=== PATIENT | male | born 1980 | race African-American/Black ===

== ENCOUNTER 2017-02-24 22:08 | Emergency (ER) | payer OTHER, SELFPAY ==
[~2017-02-24 22:08] MED LIST: ISOVUE-370 76%-LOCM 1 ML ONE
[2017-02-24] MEDS ORDERED: Morphine 10 MG/ML VIAL ONE (22:56)
[2017-02-24] MEDS ORDERED: Ondansetron HCl/PF 4 MG/2 ML Vial ONE (22:56)
[2017-02-24 23:02] LABS: #Eosinphils 0.2 thou/uL (0.0-0.7); #Lymphocytes 1.7 thou/uL (1.20-3.40); #Monocytes 0.7 thou/uL (0.11-0.59); #Neutrophils 7.2 thou/uL (1.40-6.50); %Basophils 0.2 % (0.0-1.0); %Eosinophils 1.8 % (0.0-10.0); %Lymphocytes 17.1 % (21.0-51.0); %Monocytes 7.4 % (0.0-10.0); Mean Platelet Volume 7.3 fL (7.4-10.4); Red Blood Cell (RBC) Count 5.07 mill/uL (4.70-6.10); White Blood Cell (WBC) Count 9.8 thou/uL (4.8-10.8)
--- NOTE | 2017-02-24 23:13 | RAD ---
CHEST ONE VIEW: History: Chest pain. FINDINGS: Cardiac silhouette is magnified by projection. Pulmonary vasculature is unremarkable. Mediastinum is midline. There is no confluent airspace consolidation or evidence of pneumothorax. IMPRESSION: No active cardiopulmonary abnormalities are demonstrated. POS: [facility]
[2017-02-24 23:15] LABS: Lactic Acid - Sepsis 3.7 mmol/L (0.5-2.2)
[2017-02-24 23:21] LABS: ALT (SGPT) 25 U/L (8-55); AST (SGOT) 16 U/L (5-34); Alkaline Phosphatase 63 U/L (40-150); Anion Gap 16 mmol/L (10-20); BUN (Urea Nitrogen) 15 mg/dL (8.9-20.6); Bilirubin, Total 0.8 mg/dL (0.2-1.2); CK (CPK) 106 U/L (30-200); Calc. Creatinine Clearance 0 mL/min (70-130); Calcium 9.8 mg/dL (7.8-10.44); Carbon Dioxide 24 mmol/L (22-29); Chloride 97 mmol/L (98-107); Estimated GFR-MDRD Greater than 90; Globulin 3.3 g/dL (2.4-3.5); Lipase 5 U/L (8-78); Protein, Total 7.7 g/dL (6.0-8.3)
[2017-02-24 23:23] LABS: Troponin I Less than 0.010 ng/mL (< 0.028)
--- NOTE | 2017-02-24 23:42 | CT ---
CT ABDOMEN AND PELVIS WITH IV CONTRAST: History: Abdominal pain. Comparison: 02-15-17 FINDINGS: The lung bases are clear. Dystrophic calcifications are again demonstrated at the pancreatic head an d neck. No inflammation is visible. The spleen, kidneys, and adrenal glands are within normal limits . Urinary bladder is incompletely distended. A large amount of stool is apparent throughout the colo n. Lack of oral contrast limits evaluation of the bowel. IMPRESSION: 1. Chronic pancreatitis. No acute inflammation is apparent. 2. Constipation. POS: [facility]
[2017-02-25] MEDS ORDERED: Ketorolac Tromethamine 30 MG/ML VIAL ONE (01:42)
[2017-02-25 01:57] LABS: Lactic Acid - Sepsis 1.2 mmol/L (0.5-2.2)
[2017-02-25 03:12] LABS: Bilirubin Negative (Negative); Blood, Urine Negative (Negative); Glucose, Urine (Dipstick) Negative (Negative); Ketone, Urine Trace mg/dL (Negative); Nitrite Negative (Negative); Protein, Urine (Dipstick) Trace mg/dL (Neg-Trace); Urobilinogen 0.2 mg/dL (0.2-1.0)
[2017-02-25] MEDS ORDERED: Fleet Enema 133 ML BOT PR SCH (03:15)
--- NOTE | 2017-04-12 12:41 | EKG ---
Test Reason : CP Blood Pressure : / mmHG Vent. Rate : 109 BPM Atrial Rate : 109 BPM P-R Int : 158 ms QRS Dur : 096 ms QT Int : 338 ms P-R-T Axes : 072 093 034 degrees QTc Int : 455 ms Sinus tachycardia Possible Left atrial enlargement Rightward axis Nonspecific ST abnormality No STEMI Abnormal ECG Confirmed by JANAE LAL ([id number]), telegraph editor RUSLAN DEVI ([id number]) on 04/12/2017 12:40:49 PM Referred By: Confirmed By:JANAE LAL
== END 2017-02-25 04:33 ==
LOC: ERS 22:08
DX: K59.00 Constipation, unspecified (principal); R11.2 Nausea with vomiting, unspecified; E11.9 Type 2 diabetes mellitus without complications; F17.210 Nicotine dependence, cigarettes, uncomplicated
CPT/HCPCS: 36415; 71010; 74177; 80053; 81003; 82550; 82553; 83605; 83690; 84484; 85025; 93005; 96361; 96374; 96375; 99406; J1885; J2270; J2405

== ENCOUNTER 2017-03-05 23:36 | Emergency (ER) | payer SELFPAY ==
[2017-03-05] MEDS ORDERED: Ondansetron HCl/PF 4 MG/2 ML Vial ONE (23:56)
[2017-03-05] MEDS ORDERED: Ketorolac Tromethamine 30 MG/ML VIAL ONE (23:56)
[2017-03-06] MEDS ORDERED: Pantoprazole 40 MG VIAL ONE (00:01)
[2017-03-06 00:07] LABS: #Basophils 0.1 thou/uL (0.0-0.2); #Eosinphils 0.2 thou/uL (0.0-0.7); #Lymphocytes 2.5 thou/uL (1.20-3.40); #Monocytes 0.7 thou/uL (0.11-0.59); #Neutrophils 4.8 thou/uL (1.40-6.50); %Basophils 1.1 % (0.0-1.0); %Eosinophils 2.9 % (0.0-10.0); %Lymphocytes 29.5 % (21.0-51.0); %Monocytes 8.4 % (0.0-10.0); Hematocrit 45.2 % (42.0-52.0); Mean Platelet Volume 6.9 fL (7.4-10.4); Red Blood Cell (RBC) Count 4.93 mill/uL (4.70-6.10); White Blood Cell (WBC) Count 8.3 thou/uL (4.8-10.8)
[2017-03-06 00:24] LABS: ALT (SGPT) 15 U/L (8-55); AST (SGOT) 9 U/L (5-34); Alkaline Phosphatase 74 U/L (40-150); Anion Gap 15 mmol/L (10-20); BUN (Urea Nitrogen) 9 mg/dL (8.9-20.6); Bilirubin, Total 0.5 mg/dL (0.2-1.2); CK (CPK) 132 U/L (30-200); Calc. Creatinine Clearance 0 mL/min (70-130); Calcium 9.7 mg/dL (7.8-10.44); Carbon Dioxide 28 mmol/L (22-29); Chloride 97 mmol/L (98-107); Estimated GFR-MDRD Greater than 90; Globulin 3.3 g/dL (2.4-3.5); Lipase 10 U/L (8-78); Protein, Total 7.7 g/dL (6.0-8.3)
[2017-03-06 00:26] LABS: Troponin I Less than 0.010 ng/mL (< 0.028)
--- NOTE | 2017-03-06 08:18 | RAD ---
PORTABLE AP CHEST: Date: 03/06/17 HISTORY: Nausea, vomiting, and chest pain. Chest pain has been present for 1 month. Pain has been worse over t he left 2 days. Patient also complains of cough and shortness of breath. COMPARISON: 02/24/17. FINDINGS: Cardiac silhouette and pulmonary vasculature are within normal limits for the portable technique of t he study. The lungs remain clear. There has been no interval change from the prior study. IMPRESSION: No acute cardiopulmonary process. POS: [facility]
--- NOTE | 2017-04-07 14:18 | EKG ---
Test Reason : CHEST PAIN Blood Pressure : / mmHG Vent. Rate : 083 BPM Atrial Rate : 083 BPM P-R Int : 162 ms QRS Dur : 092 ms QT Int : 350 ms P-R-T Axes : 082 076 047 degrees QTc Int : 411 ms Normal sinus rhythm Normal ECG Confirmed by BOB NEWBERRY, NOEMI ([id number]), video effects editor RUSLAN DEVI ([id number]) on 04/07/2017 2:17:53 PM Referred By: ISABELA BYRNE Confirmed By:NOEMI ROJAS MD
== END 2017-03-06 01:02 ==
LOC: ERS 23:36 → EEVIPCON 23:36 → ERS 03-06 01:02
DX: E11.43 Type 2 diabetes mellitus with diabetic autonomic (poly)neuropathy (principal); K31.84 Gastroparesis; K21.9 Gastro-esophageal reflux disease without esophagitis; E11.9 Type 2 diabetes mellitus without complications; F17.210 Nicotine dependence, cigarettes, uncomplicated; Z79.4 Long term (current) use of insulin; Z79.899 Other long term (current) drug therapy
CPT/HCPCS: 71010; 80053; 82550; 82553; 83690; 84484; 85025; 93005; 96374; 96375; C9113; J1885; J2405

== ENCOUNTER 2017-06-21 15:42 | Emergency (ER) | payer SELFPAY ==
[2017-06-21 16:57] LABS: Base Excess-Venous 2.3 mmol/L (-30.0-30.0); Bicarbonate (HCO3v) 29.5 mmol/L (1.0-85.0); CO2 Tension (PvCO2) 55.2 mmHg (41.0-51.0); Calcium, Ionized 1.14 mmol/L (1.12-1.32); O2 Tension (PvO2) 37.9 mmHg (35.0-45.0); Potassium 3.9 mmol/L (3.4-4.7); T. Carbon Dioxide 31.2 mmol/L (1.0-85.0); pH (Venous) 7.336 (7.35-7.45); vO2 Saturation-calc 66.9 % (0.0-100.0)
[2017-06-21 16:58] LABS: #Basophils 0.1 thou/uL (0.0-0.2); #Eosinphils 0.2 thou/uL (0.0-0.7); #Lymphocytes 1.3 thou/uL (1.20-3.40); #Monocytes 0.5 thou/uL (0.11-0.59); #Neutrophils 3.3 thou/uL (1.40-6.50); %Basophils 1.6 % (0.0-1.0); %Eosinophils 3.1 % (0.0-10.0); %Lymphocytes 24.4 % (21.0-51.0); %Monocytes 9.8 % (0.0-10.0); %Neutrophils 61.2 % (42.0-75.0); Hemoglobin 13.6 g/dL (14.0-18.0); Mean Corpuscular HGB CONC 32.6 g/dL (32.0-36.0); Mean Corpuscular Volume 89.2 fl (80.0-94.0); Mean Platelet Volume 7.1 fL (7.4-10.4); Platelet Count 281 thou/uL (130-400); RBC Distribution Width 13.2 % (11.5-14.5); Red Blood Cell (RBC) Count 4.68 mill/uL (4.70-6.10); White Blood Cell (WBC) Count 5.4 thou/uL (4.8-10.8)
[2017-06-21 17:16] LABS: ALT (SGPT) 16 U/L (8-55); AST (SGOT) 12 U/L (5-34); Albumin 4.5 g/dL (3.5-5.0); Alkaline Phosphatase 94 U/L (40-150); Anion Gap 14 mmol/L (10-20); BUN (Urea Nitrogen) 16 mg/dL (8.9-20.6); Bilirubin, Total 0.8 mg/dL (0.2-1.2); Calc. Creatinine Clearance 0 mL/min (70-130); Calcium 9.8 mg/dL (7.8-10.44); Carbon Dioxide 27 mmol/L (22-29); Chloride 99 mmol/L (98-107); Estimated GFR-MDRD Greater than 90; Globulin 3.3 g/dL (2.4-3.5); Glucose 451 mg/dL (70-105); Phosphorus 3.7 mg/dL (2.3-4.7); Potassium 3.9 mmol/L (3.5-5.1); Protein, Total 7.8 g/dL (6.0-8.3); Sodium 136 mmol/L (136-145)
--- NOTE | 2017-06-21 17:49 | RAD ---
PORTABLE CHEST ONE VIEW 06/21/17 at 5:32 p.m. HISTORY: Chest pain, weakness. FINDINGS: Comparison made with exam of 03/06/17. The heart size is normal. The lungs are expanded without focal areas of consolidation, pneumothorax o r pleural effusions. IMPRESSION: No radiographic evidence of acute cardiopulmonary process. POS: [facility]
[2017-06-21 19:19] LABS: Bilirubin Negative (Negative); Blood, Urine Negative (Negative); Clarity CLEAR (Clear); Glucose, Urine (Dipstick) >=1000 mg/dL (Negative); Leukocyte Small (Negative); Nitrite Negative (Negative); Protein, Urine (Dipstick) Negative (Neg-Trace); Specific Gravity, Urine 1.038 (1.002-1.036)
[2017-06-21 19:22] LABS: Bacteria/HPF Rare-Few HPF (None Seen); Hyaline Casts/LPF 0-3 HYALINE CAST LPF (0-3 Hyaline); Squamous Epithelial 0-3 HPF (0-3)
[2017-06-21] MEDS ORDERED: traMADol HCl 50 MG TAB ONE (19:25)
== END 2017-06-21 20:20 | disposition home or self-care (01) ==
LOC: ERS 15:42
DX: E11.65 Type 2 diabetes mellitus with hyperglycemia (principal); Z91.14 Patient's other noncompliance with medication regimen; F17.210 Nicotine dependence, cigarettes, uncomplicated; Z79.4 Long term (current) use of insulin; Z79.899 Other long term (current) drug therapy
CPT/HCPCS: 36415; 36416; 71045; 80053; 81003; 81015; 82330; 82803; 84100; 85025; 87086; 93005; 96360; 96361

== ENCOUNTER 2018-06-15 00:44 | Emergency (ER) | payer SELFPAY ==
[2018-06-15 01:52] LABS: #Eosinphils 0.3 thou/uL (0.0-0.7); #Lymphocytes 1.3 thou/uL (1.20-3.40); #Neutrophils 12.5 thou/uL (1.40-6.50); %Basophils 0.3 % (0.0-1.0); %Eosinophils 2.3 % (0.0-10.0); %Lymphocytes 8.3 % (21.0-51.0); %Monocytes 6.9 % (0.0-10.0); %Neutrophils 82.3 % (42.0-75.0); Hemoglobin 15.2 g/dL (14.0-18.0); Mean Corpuscular HGB CONC 31.4 g/dL (32.0-36.0); Mean Corpuscular Hemoglobin 29.7 pg (27.0-31.0); Mean Corpuscular Volume 94.3 fL (78.0-98.0); Mean Platelet Volume 8.1 fL (7.4-10.4); Platelet Count 243 thou/uL (130-400); RBC Distribution Width 11.8 % (11.5-14.5); Red Blood Cell (RBC) Count 5.14 mill/uL (4.70-6.10); White Blood Cell (WBC) Count 15.2 thou/uL (4.8-10.8)
[2018-06-15 02:05] LABS: ALT (SGPT) 47 U/L (8-55); AST (SGOT) 30 U/L (5-34); Albumin 5.1 g/dL (3.5-5.0); Alkaline Phosphatase 214 U/L (40-150); Anion Gap 22 mmol/L (10-20); BUN (Urea Nitrogen) 6 mg/dL (8.9-20.6); Bilirubin, Total 0.8 mg/dL (0.2-1.2); Calc. Creatinine Clearance 0 mL/min (70-130); Calcium 10.4 mg/dL (7.8-10.44); Carbon Dioxide 22 mmol/L (22-29); Chloride 100 mmol/L (98-107); Estimated GFR-MDRD 65; Globulin 3.3 g/dL (2.4-3.5); Protein, Total 8.4 g/dL (6.0-8.3); Sodium 140 mmol/L (136-145)
[2018-06-15 02:08] LABS: Glucose 582 mg/dL (70-105)
[2018-06-15] MEDS ORDERED: Insulin Regular 300 UNITS/3 ML VIAL ONE (02:29)
[2018-06-15 02:32] LABS: Acetaminophen Less than 6.0 mcg/mL (10.0-30.0); Alcohol Less than 10 mg/dL (Less than 10); Salicylate Less than 8.0 mg/dL (15.0-30.0)
[2018-06-15 02:50] LABS: Lactic Acid 2.5 mmol/L (0.5-2.2)
--- NOTE | 2018-06-15 08:29 | RAD ---
TWO VIEWS OF THE CHEST: COMPARISON: 06/21/2017. HISTORY: Chest pain. FINDINGS: Two views of the chest show normal sized cardiomediastinal silhouette. There is no evidence of consol idation, mass, or pleural effusion. The bones are unremarkable. IMPRESSION: No evidence of acute cardiopulmonary disease. POS: [facility]
== END 2018-06-15 05:41 ==
LOC: ERS 00:44
DX: E11.65 Type 2 diabetes mellitus with hyperglycemia (principal); F17.210 Nicotine dependence, cigarettes, uncomplicated; Z79.84 Long term (current) use of oral hypoglycemic drugs; Z71.6 Tobacco abuse counseling
CPT/HCPCS: 36415; 36416; 71046; 80053; 80307; 82010; 83605; 84484; 85025; 93005; 96361; 96374; 99406; J1815

== ENCOUNTER 2018-09-14 10:13 | Emergency (ER) | payer OTHER, SELFPAY ==
[2018-09-14] MEDS ORDERED: ISOVUE-370 76%-LOCM 1 ML ONE (11:05)
[2018-09-14] MEDS ORDERED: Ondansetron PF 4 MG/2 ML Vial ONE (11:42)
--- NOTE | 2018-09-14 12:11 | CT ---
CT Abdomen Pelvis W Con: 09/14/2018 11:43 AM CLINICAL INFORMATION: Intermittent abdominal pain COMPARISON: 02/24/2017 TECHNIQUE: Multiple contiguous axial images were obtained and a CT of the abdomen and pelvis with IV contrast. C oronal reformats were performed. FINDINGS: Lower Chest: within normal limits. Abdomen: Liver: within normal limits. Bile Ducts: Normal caliber. Gallbladder: No calcified gallstones. Normal caliber wall. Pancreas: Calcifications in the pancreatic head may be from prior episodes of chronic pancreatitis. Spleen: within normal limits. Adrenals: within normal limits. Kidneys: within normal limits. Pelvis: Reproductive Organs: No pelvic masses. Ureters: within normal limits. Bladder: within normal limits. Peritoneum: No ascites or free air, no fluid collection. Bowel: Normal caliber. Normal appendix. Mesentery and Retroperitoneum: No enlarged mesenteric or retroperitoneal lymph nodes. Vessels: Normal. Abdominal Wall: within normal limits. Bones: Within normal limits IMPRESSION: 1. No evidence of acute intraabdominal\pelvic abnormality. 2. Calcifications in the pancreas may be from chronic pancreatitis.
[2018-09-14 12:26] LABS: #Basophils 0.1 thou/uL (0.0-0.2); #Eosinphils 0.4 thou/uL (0.0-0.7); #Lymphocytes 1.6 thou/uL (1.20-3.40); #Monocytes 0.6 thou/uL (0.11-0.59); #Neutrophils 5.2 thou/uL (1.40-6.50); %Basophils 0.9 % (0.0-1.0); %Eosinophils 4.6 % (0.0-10.0); %Lymphocytes 20.9 % (21.0-51.0); %Neutrophils 66.6 % (42.0-75.0); Hemoglobin 13.5 g/dL (14.0-18.0); Mean Corpuscular HGB CONC 32.2 g/dL (32.0-36.0); Mean Corpuscular Hemoglobin 28.5 pg (27.0-31.0); Mean Corpuscular Volume 88.3 fL (78.0-98.0); Mean Platelet Volume 6.9 fL (7.4-10.4); Platelet Count 326 thou/uL (130-400); RBC Distribution Width 11.5 % (11.5-14.5); Red Blood Cell (RBC) Count 4.73 mill/uL (4.70-6.10); White Blood Cell (WBC) Count 7.8 thou/uL (4.8-10.8)
[2018-09-14 12:47] LABS: Bilirubin Negative (Negative); Blood, Urine Negative (Negative); Clarity CLOUDY (Clear); Glucose, Urine (Dipstick) Negative (Negative); Leukocyte Negative (Negative); Nitrite Negative (Negative); Protein, Urine (Dipstick) Negative (Neg-Trace); pH, Urine 7.5 (5.0-9.0)
[2018-09-14 12:50] LABS: Specific Gravity, Urine 1.043 (1.002-1.036)
[2018-09-14 12:59] LABS: ALT (SGPT) 23 U/L (8-55); AST (SGOT) 16 U/L (5-34); Albumin 4.3 g/dL (3.5-5.0); Alkaline Phosphatase 80 U/L (40-150); Anion Gap 7 mmol/L (10-20); BUN (Urea Nitrogen) 10 mg/dL (8.9-20.6); Bilirubin, Total 0.8 mg/dL (0.2-1.2); Calc. Creatinine Clearance 0 mL/min (70-130); Calcium 10.1 mg/dL (7.8-10.44); Carbon Dioxide 32 mmol/L (22-29); Chloride 101 mmol/L (98-107); Estimated GFR-MDRD Greater than 90; Globulin 3.2 g/dL (2.4-3.5); Glucose 196 mg/dL (70-105); Lipase 5 U/L (8-78); Protein, Total 7.5 g/dL (6.0-8.3); Sodium 136 mmol/L (136-145)
[2018-09-14] MEDS ORDERED: Sucralfate 1 GM/10 ML UDCUP ONE (13:27)
== END 2018-09-14 13:42 | disposition home or self-care (01) ==
LOC: ERS 10:13
DX: R10.9 Unspecified abdominal pain (principal); E11.9 Type 2 diabetes mellitus without complications; I10 Essential (primary) hypertension; F17.210 Nicotine dependence, cigarettes, uncomplicated; Z79.84 Long term (current) use of oral hypoglycemic drugs; Z79.899 Other long term (current) drug therapy
CPT/HCPCS: 74177; 80053; 81003; 83690; 85025; 96361; 96374; J2405; Q9966

== ENCOUNTER 2018-12-30 21:08 | Emergency (ER) | payer SELFPAY ==
[2018-12-30] MEDS ORDERED: Clindamycin/D5W 900 mg/50 ml Premix Bag ONE (21:54)
[2018-12-30 21:55] LABS: #Basophils 0.1 thou/uL (0.0-0.2); #Eosinphils 0.4 thou/uL (0.0-0.7); #Lymphocytes 1.6 thou/uL (1.20-3.40); #Monocytes 0.7 thou/uL (0.11-0.59); #Neutrophils 8.2 thou/uL (1.40-6.50); %Basophils 0.7 % (0.0-1.0); %Eosinophils 3.9 % (0.0-10.0); %Lymphocytes 14.7 % (21.0-51.0); %Monocytes 6.1 % (0.0-10.0); %Neutrophils 74.6 % (42.0-75.0); Hemoglobin 14.3 g/dL (14.0-18.0); Mean Corpuscular HGB CONC 32.9 g/dL (32.0-36.0); Mean Corpuscular Hemoglobin 28.8 pg (27.0-31.0); Mean Corpuscular Volume 87.6 fL (78.0-98.0); Mean Platelet Volume 8.6 fL (7.4-10.4); Platelet Count 235 thou/uL (130-400); RBC Distribution Width 11.8 % (11.5-14.5); Red Blood Cell (RBC) Count 4.95 mill/uL (4.70-6.10)
[2018-12-30] MEDS ORDERED: Ketorolac Tromethamine 30 MG/ML VIAL ONE (22:07)
[2018-12-30 22:17] LABS: ALT (SGPT) 18 U/L (8-55); AST (SGOT) 13 U/L (5-34); Albumin 4.2 g/dL (3.5-5.0); Alkaline Phosphatase 134 U/L (40-150); Anion Gap 11 mmol/L (10-20); BUN (Urea Nitrogen) 11 mg/dL (8.9-20.6); Bilirubin, Total 0.7 mg/dL (0.2-1.2); Calc. Creatinine Clearance 0 mL/min (70-130); Calcium 9.6 mg/dL (7.8-10.44); Carbon Dioxide 28 mmol/L (22-29); Chloride 99 mmol/L (98-107); Estimated GFR-MDRD 85; Globulin 3.6 g/dL (2.4-3.5); Glucose 480 mg/dL (70-105); Potassium 4.3 mmol/L (3.5-5.1); Protein, Total 7.8 g/dL (6.0-8.3); Sodium 134 mmol/L (136-145)
[2018-12-30] MEDS ORDERED: Insulin Regular 300 UNITS/3 ML VIAL ONE (23:11)
== END 2018-12-31 00:09 | disposition home or self-care (01) ==
LOC: ERS 21:08
DX: E11.65 Type 2 diabetes mellitus with hyperglycemia (principal); K04.7 Periapical abscess without sinus; F17.210 Nicotine dependence, cigarettes, uncomplicated; Z79.4 Long term (current) use of insulin
CPT/HCPCS: 36416; 41800; 80053; 85025; 96361; 96365; 96375; J1815; J1885; J3490

== ENCOUNTER 2019-01-19 20:27 | Inpatient (IN) | payer SELFPAY ==
[2019-01-19] MEDS ORDERED: Ketorolac Tromethamine 30 MG/ML VIAL ONE (22:40)
[2019-01-19] MEDS ORDERED: Ondansetron PF 4 MG/2 ML Vial ONE (22:53)
[2019-01-19] MEDS ORDERED: Morphine 4 MG/ML VIAL ONE (22:53)
[2019-01-19 22:54] LABS: #Basophils 0.1 thou/uL (0.0-0.2); #Eosinphils 0.3 thou/uL (0.0-0.7); #Lymphocytes 1.3 thou/uL (1.20-3.40); #Monocytes 0.9 thou/uL (0.11-0.59); #Neutrophils 7.8 thou/uL (1.40-6.50); %Basophils 0.6 % (0.0-1.0); %Eosinophils 3.2 % (0.0-10.0); %Lymphocytes 12.1 % (21.0-51.0); %Monocytes 8.3 % (0.0-10.0); %Neutrophils 75.8 % (42.0-75.0); Mean Corpuscular HGB CONC 32.5 g/dL (32.0-36.0); Mean Corpuscular Hemoglobin 29.3 pg (27.0-31.0); Mean Corpuscular Volume 90.2 fL (78.0-98.0); Mean Platelet Volume 8.6 fL (7.4-10.4); Platelet Count 245 thou/uL (130-400); RBC Distribution Width 12.1 % (11.5-14.5); Red Blood Cell (RBC) Count 5.11 mill/uL (4.70-6.10); White Blood Cell (WBC) Count 10.3 thou/uL (4.8-10.8)
[2019-01-19] MEDS ORDERED: Clindamycin/D5W 900 MG in Premix Bag 1 BAG IVPB SCH (23:00)
[2019-01-19 23:16] LABS: ALT (SGPT) 20 U/L (8-55); AST (SGOT) 11 U/L (5-34); Albumin 4.1 g/dL (3.5-5.0); Alkaline Phosphatase 110 U/L (40-110); Anion Gap 14 mmol/L (10-20); BUN (Urea Nitrogen) 13 mg/dL (8.9-20.6); Bilirubin, Total 1.2 mg/dL (0.2-1.2); Calc. Creatinine Clearance 0 mL/min (70-130); Calcium 9.3 mg/dL (7.8-10.44); Carbon Dioxide 29 mmol/L (22-29); Chloride 96 mmol/L (98-107); Estimated GFR-MDRD Greater than 90; Glucose 546 mg/dL (70-105); Potassium 3.9 mmol/L (3.5-5.1); Protein, Total 7.1 g/dL (6.0-8.3); Sodium 135 mmol/L (136-145)
--- NOTE | 2019-01-19 23:42 | CT ---
CT Facial Bones W Con History: Deformity Comparison: None. Findings: Chronic large periodontal abscess extending from the root of the right mandibular second mo lar with remodeling of the floor of the maxillary sinus. This large abscess extends from the maxillary sinus floor with cortical breakthrough into the adjacent buccal soft tissues. Overall this abscess measures 4 cm in transverse by craniocaudal dimension of 5 cm and extends anteroposteriorly approximately 3 cm. The floor of the right maxillary sinus has been remodeled extends into the maxill mario sinus. There is extensive adjacent phlegmonous soft tissue. Complete filling of the right maxillary sinus with reactive fluid. There is medial bowing of the right maxillary sinus cortex which is severely tendon and abuts the right middle turbinate. There is a second chronic abscess at the left maxillary lateral incisor with abscess measuring up to 2 cm. Extensive adjacent phlegmonous soft tissue. Abscess extends to the buccal soft tissues. There is a smaller abscess of the right maxillary canine measuring up to 1 cm in size. This also extends in to the buccal soft tissues. [place] tonsils are without abscess. Nasopharyngeal tonsils are without abscess. Globes are intact. Extensive soft tissue swelling of the cheek on the right and left. Smaller 1.5 cm abscess of the right mandibular first molar with cortical breakthrough into the buccal soft tissues. Numerous cavities and missing teeth. No retropharyngeal collection. Impression: Extensive abscesses as described, greatest at the right maxillary second molar with remod eling of the floor the right maxillary sinus which is bowed superiorly into the midportion of the sinus.
[2019-01-20 00:37] LABS: Bacteria/HPF None Seen HPF (None Seen); Bilirubin Negative (Negative); Blood, Urine Negative (Negative); Clarity Clear (Clear); Glucose, Urine (Dipstick) Greater than 1000 mg/dL (Negative); Leukocyte Negative Leu/uL (Negative); Nitrite Negative (Negative); Protein, Urine (Dipstick) Negative (Neg-Trace); RBC/HPF None Seen HPF (0-3); Squamous Epithelial None Seen HPF (0-3); Urobilinogen Normal mg/dL (Less than 2); WBC/HPF None Seen HPF (0-3)
[2019-01-20 02:57] VITALS: BMI 19.3
[2019-01-20] MEDS ORDERED: Sodium Chloride 0.9% 1,000 ML IV SCH (03:15)
[2019-01-20] MEDS ORDERED: HYDROcodone/Acetaminophen 5/325 mg Tablet PO PRN (08:36)
[2019-01-20] MEDS ORDERED: Bisacodyl 10 MG SUPP PR PRN (08:36)
[2019-01-20] MEDS ORDERED: Zolpidem Tartrate 5 MG TAB PO PRN (08:36)
[2019-01-20] MEDS ORDERED: HumaLOG 300 UNITS/3 ML VIAL SC PRN (08:36)
[2019-01-20] MEDS ORDERED: Dextrose 5% in Water 1,000 ML IV PRN (08:36)
[2019-01-20] MEDS ORDERED: Ketorolac Tromethamine 30 MG/ML VIAL IVP PRN (08:36)
[2019-01-20] MEDS ORDERED: Dextrose 50% Abboject 50 ML SYRINGE SLOW IVP PRN (08:36)
[2019-01-20] MEDS ORDERED: Senokot S 8.6-50 MG TAB PO PRN (08:36)
[2019-01-20] MEDS ORDERED: Calcium Carbonate 500 MG ChewTAB PO PRN (08:36)
[2019-01-20] MEDS ORDERED: Loperamide HCl 2 MG CAP PO PRN (08:36)
[2019-01-20] MEDS ORDERED: Ondansetron PF 4 MG/2 ML Vial IVP PRN (08:36)
[2019-01-20] MEDS ORDERED: Acetaminophen 325 MG TAB PO PRN (08:36)
[2019-01-20] MEDS ORDERED: Ondansetron ODT 4 MG TAB PO PRN (08:36)
[2019-01-20] MEDS ORDERED: metFORMIN 500 MG TAB PO SCH (09:00)
[2019-01-20] MEDS: Famotidine 20 MG TAB PO SCH ×2 (09:38→21:53)
[2019-01-20] MEDS: Saccharomyces boulardii 250 MG CAP PO SCH (09:38)
[2019-01-20] MEDS: Morphine 2 MG/ML SYRINGE SLOW IVP PRN ×3 (09:39→18:46)
[2019-01-20] MEDS: Sodium Chloride 0.9% 1,000 ML IV SCH ×2 (09:42→17:24)
[2019-01-20] MEDS: Enoxaparin Sodium 40 MG/0.4 ML SYRINGE SC SCH (11:19)
[2019-01-20] MEDS ORDERED: PHENYLEPHRINE-NS 100 MCG/ML 10 ML SYRINGE ONE (11:38)
[2019-01-20] MEDS ORDERED: PROPOFOL 200 MG/20 ML VIAL ONE (11:38)
[2019-01-20] MEDS ORDERED: Ondansetron PF 4 MG/2 ML Vial ONE (11:38)
[2019-01-20] MEDS ORDERED: Rocuronium Bromide 10 MG/ML (10ML VIAL) ONE (11:38)
[2019-01-20] MEDS ORDERED: Glycopyrrolate 0.2 MG/ML 5 ML SYRINGE ONE (11:38)
[2019-01-20] MEDS ORDERED: Succinylcholine Chloride 20 MG/ML 10 ml SYRINGE FS ONE (11:38)
[2019-01-20] MEDS: HumaLOG 300 UNITS/3 ML VIAL SC PRN (11:55)
[2019-01-20] MEDS: Clindamycin/D5W 900 MG in Premix Bag 1 BAG IVPB SCH ×2 (12:46→21:56)
--- NOTE | 2019-01-20 13:27 | HP ---
PRIMARY CARE PHYSICIAN: [facility]. REASON FOR ADMISSION: Periodontal abscess, hyperglycemia, right-sided facial cellulitis. HISTORY OF PRESENT ILLNESS: A 38-year-old male, who has underlying history of hypertension as well as diabetes type 2, who was brought to emergency room for jaw swelling and tooth pain. The patient reports that he has symptoms for last few weeks, but recently his symptoms gotten worse. The patient was evaluated in the emergency room on December 30. At that time, the patient had a dental abscess that was drained and the patient was given antibiotic therapy. He was taking antibiotic therapy, but the patient was not feeling any improvement. The patient was noticed that his right side of the face was getting swelling including eyelid and he was having difficulty with chewing and he was feeling more worse and that is why last night, he decided to come back to emergency room for evaluation. He denies any visit with dentist. He denies any similar problem in the past. He has pain when he opens his mouth. He denies any fever or chills. He denies any chest pain, palpitation, or shortness of breath. He denies any constipation or diarrhea. He denies any melena or hematochezia. He does have fatigue and he reports that he lost almost 50 pounds this year unintentionally. He denies any sweating. He denies any shortness of breath. The patient has history of diabetes and hypertension. He ran out his amlodipine when he was incarcerated. [facility]. He was also not taking his insulin as prescribed because of financial reason and his blood sugar was running at home in the 400 to 500. In the emergency room, the patient was evaluated and he had facial bone CT scan, which showed extensive abscess greatest at the right maxillary second molar with remodeling of the floor and right maxillary sinus. In the emergency room, the patient received clindamycin, IV fluid, Toradol, morphine, and Zofran. Subsequently, he was admitted to medical floor. REVIEW OF SYSTEMS: CONSTITUTIONAL: Negative for weight loss or gain, ability to conduct usual activities. SKIN: Negative for rash, itching. EYES: Negative for double vision, pain. ENT/MOUTH: Negative for nose bleeding, neck stiffness, pain, tenderness. CARDIOVASCULAR: Negative for palpitations, dyspnea on exertion, orthopnea. RESPIRATORY: Negative for shortness of breath, wheezing, cough, hemoptysis, fever or night sweats. GASTROINTESTINAL: Negative for poor appetite, abdominal pain, heartburn, nausea, vomiting, constipation, or diarrhea. GENITOURINARY: Negative for urgency, frequency, dysuria, nocturia. MUSCULOSKELETAL: Negative for pain, swelling. NEUROLOGIC/PSYCHIATRIC: Negative for anxiety, depression. ALLERGY/IMMUNOLOGIC: Negative for skin rash, bleeding tendency. Please see my HPI for pertinent positives and negatives. All other review of systems reviewed and negative except as mentioned in HPI. PAST MEDICAL HISTORY: Diabetes type 2, hypertension, history of pancreatitis. PAST SURGICAL HISTORY: Reviewed and negative. PAST PSYCHIATRIC HISTORY: Reviewed and negative. SOCIAL HISTORY: The patient denies any alcohol abuse. He smokes cigarettes during daytime. He denies any other illicit drug abuse. FAMILY HISTORY: Diabetes runs among several family members. No family history of coronary artery disease, stroke, or cancer. ALLERGIES: NO KNOWN DRUG ALLERGIES. CURRENT HOME MEDICATIONS: 1. Metformin 500 mg twice daily. 2. Humulin R subcu as per sliding scale. 3. Amlodipine 10 mg p.o. daily. 4. Clindamycin 150 mg q.6 hourly. EMERGENCY ROOM COURSE: The patient is given IV fluid, clindamycin 900 mg, Toradol 30 mg, morphine 4 mg, Zofran 4 mg. PHYSICAL EXAMINATION: VITAL SIGNS: Currently, blood pressure 119/80, pulse 117, respiratory rate 18, temperature 98.7, saturation 97% on room air. Weight 81.7 kg. GENERAL: The patient is currently alert, awake, no obvious acute distress. HEENT: Head; normocephalic and atraumatic. Face, the patient does have right eyelid swelling, right-sided facial swelling with tenderness, and jaw swelling. NECK: Supple. No JVD. No meningeal signs of irritation. LUNGS: Clear to auscultation without any rhonchi or rales. CARDIAC: S1 and S2. Regular without any murmur. No gallop. No rub. ABDOMEN: Soft. Bowel sounds are present. Nontender. Nondistended. No organomegaly. No mass. No suprapubic tenderness. BACK: Unremarkable. No CVA tenderness. EXTREMITIES: Upper extremities; passive movement of all joints are normal. Lower extremities; no edema. Good distal pulsation. No calf tenderness. SKIN: No skin rash. HEMATOLOGIC: No lymphadenopathy. NEUROLOGIC: Nonfocal examination. SIGNIFICANT LABORATORY DATA AND IMAGING STUDIES: CT facial bone done in the emergency room showing chronic large periodontal abscess extending from root of the right mandibular second molar with remodeling of the floor of the maxillary sinus. This large abscess extends from maxillary sinus floor with cortical breakthrough into adjacent buccal soft tissue. Overall size of the abscess is 4 cm x 5 cm x 3 cm. Maxillary sinus is also filling reactive fluid, chronic abscess in the left maxillary lateral incisor with abscess measuring up to 2 cm. Smaller abscess in the right maxillary canine. Numerous cavities and missing teeth. CBC; WBC 10.3, hemoglobin 15.0, platelet 245. BMP; sodium 135, potassium 3.9, chloride 96, carbon dioxide 29, BUN 13, creatinine 1.08, glucose 546, calcium 9.3. LFT; AST 11, ALT 20, alkaline phosphatase 110, albumin 4.1. CRP 1.45. Procalcitonin 0.02. Glucose 340, 292, and 280. Urinalysis, glucosuria. Beta hydroxybutyrate 0.57. Blood culture negative. Streptococcal screen negative. ASSESSMENT AND PLAN AND IMPRESSION: 1. Sepsis due to facial abscess. 2. Multiple dental abscess, chronic and acute with associated facial cellulitis. 3. Right-sided facial cellulitis secondary to dental abscess. 4. Hyperglycemia associated with diabetes type 2 worsen with infection. 5. Hypertension. 6. Tobacco abuse disorder. PLAN: 1. The patient will require inpatient hospitalization because he will need surgery for his multiple enlarged dental abscesses and he failed outpatient therapy. Oral surgeon has been consulted and the patient is n.p.o. and plan for surgery later on today. We will continue with clindamycin 900 mg IV q.8 hourly and probiotics with Florastor 250 mg twice daily. We will control his pain with Toradol. We will control his diabetes with insulin as per sliding scale as well as we will continue with insulin 70/30, 10 units subcu b.i.d. and adjust insulin accordingly. 2. History of hypertension, but the patient is currently having normal blood pressure, so we will hold on blood pressure medication. 3. Weight loss, unclear etiology, but suspecting from chronic illness. 4. Deep venous thrombosis prophylaxis. Lovenox 40 mg subcu daily. 5. GI prophylaxis. Pepcid 20 mg p.o. b.i.d. CODE STATUS: The patient is full code. DISPOSITION PLAN: Based on clinical course, we are expecting the patient's stay in hospital more than 2 midnights. Plan of care discussed with the patient in detail. Job ID: [id number]
[2019-01-20] MEDS ORDERED: Chlorhexidine Gluconate 15 ML UDCUP SSP ONE (13:56)
[2019-01-20] MEDS ORDERED: Ophthalmic Irrigation Solution 0 ML ONE (13:56)
[2019-01-20] MEDS ORDERED: Bacitracin Zinc Ointment 30 gm TUBE ONE (13:56)
[2019-01-20] MEDS ORDERED: Lidocaine 1% w/Epinephrine 1:100K 20 ML VIAL ONE (13:56)
[2019-01-20] MEDS ORDERED: Ciprofloxacin 0.2% Otic 1 DROP CON ONE (13:57)
[2019-01-20] MEDS ORDERED: Midazolam HCl 2 mg/2 ml Vial ONE (14:43)
[2019-01-20] MEDS ORDERED: Fentanyl 250 MCG/5 ML VIAL ONE (14:43)
[2019-01-20] MEDS ORDERED: Sodium Chloride 0.9% 10 ML ONE (15:21)
[2019-01-20] MEDS ORDERED: Ondansetron HCl/PF 4 MG/2 ML Vial IVP PRN (16:28)
[2019-01-20] MEDS ORDERED: Promethazine HCl 25 MG/ML VIAL IM PRN (16:28)
[2019-01-20] MEDS ORDERED: Promethazine HCl 25 MG/ML VIAL SLOW IVP PRN (16:28)
[2019-01-20] MEDS ORDERED: FLU VACC QS2019-20(6MOS UP)/PF 60 MCG/0.5 ML SYRINGE IM ONE (21:00)
[2019-01-20] MEDS ORDERED: Non-Formulary Item 1 EACH (Insulin Detemir [Levemir] 50 UNITS) SQ SCH (21:00)
[2019-01-20] MEDS: Chlorhexidine Gluconate 15 ML UDCUP SSP SCH (21:53)
[2019-01-20] MEDS: NPH, Human Insulin Isophane 300 UNIT/3 ML VIAL SC SCH (21:56)
[2019-01-20] MEDS: Insulin Glargine 50 UNITS in Pre-Filled Syringe 1 EACH SC SCH (22:01)
[2019-01-21] MEDS: HumaLOG 300 UNITS/3 ML VIAL SC PRN ×2 (05:33→17:17)
[2019-01-21] MEDS: Clindamycin/D5W 900 MG in Premix Bag 1 BAG IVPB SCH ×3 (05:33→21:13)
[2019-01-21] MEDS: Morphine 2 MG/ML SYRINGE SLOW IVP PRN ×5 (05:44→22:42)
[2019-01-21 06:08] LABS: #Eosinphils 0.4 thou/uL (0.0-0.7); #Lymphocytes 1.9 thou/uL (1.20-3.40); #Monocytes 0.6 thou/uL (0.11-0.59); #Neutrophils 4.5 thou/uL (1.40-6.50); %Basophils 0.3 % (0.0-1.0); %Lymphocytes 25.5 % (21.0-51.0); %Monocytes 8.4 % (0.0-10.0); %Neutrophils 60.8 % (42.0-75.0); Mean Corpuscular HGB CONC 32.4 g/dL (32.0-36.0); Mean Corpuscular Volume 89.4 fL (78.0-98.0); Mean Platelet Volume 8.1 fL (7.4-10.4); Platelet Count 203 thou/uL (130-400); RBC Distribution Width 11.9 % (11.5-14.5); Red Blood Cell (RBC) Count 4.15 mill/uL (4.70-6.10); White Blood Cell (WBC) Count 7.3 thou/uL (4.8-10.8)
[2019-01-21 06:15] LABS: Anion Gap 7 mmol/L (10-20); BUN (Urea Nitrogen) 5 mg/dL (8.9-20.6); Calc. Creatinine Clearance 149 mL/min (70-130); Calcium 8.3 mg/dL (7.8-10.44); Carbon Dioxide 28 mmol/L (22-29); Chloride 105 mmol/L (98-107); Estimated GFR-MDRD Greater than 90; Glucose 206 mg/dL (70-105); Potassium 3.4 mmol/L (3.5-5.1); Sodium 137 mmol/L (136-145)
[2019-01-21] MEDS: Saccharomyces boulardii 250 MG CAP PO SCH (08:06)
[2019-01-21] MEDS: Famotidine 20 MG TAB PO SCH ×2 (08:06→21:10)
[2019-01-21] MEDS: metFORMIN 500 MG TAB PO SCH (08:06)
[2019-01-21] MEDS: Chlorhexidine Gluconate 15 ML UDCUP SSP SCH ×2 (08:06→21:10)
[2019-01-21] MEDS: Sodium Chloride 0.9% 1,000 ML IV SCH ×2 (08:07)
[2019-01-21] MEDS: NPH, Human Insulin Isophane 300 UNIT/3 ML VIAL SC SCH ×2 (08:07→21:12)
[2019-01-21] MEDS: Enoxaparin Sodium 40 MG/0.4 ML SYRINGE SC SCH (08:07)
[2019-01-21] MEDS ORDERED: Sodium Chloride 0.9% 1,000 ML IV SCH (08:15)
[2019-01-21 08:28] LABS: Hemoglobin A1c 11.8 % (4.0-6.0)
[2019-01-21] MEDS: Sodium Chloride 0.45% 1,000 ML IV SCH ×2 (09:52→22:44)
[2019-01-21] MEDS ORDERED: Potassium Chloride 10 MEQ/100 ML PREMIX BAG IVPB SCH (10:00)
--- NOTE | 2019-01-21 13:28 | PDOC.HOSPP ---
- Subjective Encounter Date: 01/21/19 Encounter Time: 10:00 Subjective: Patient seen and examined. No new complaints. No overnight events - Objective Vital Signs & Weight: Vital Signs (12 hours) Temp Pulse Resp BP Pulse Ox 01/21/19 11:00 97.7 F 84 18 114/81 96 01/21/19 07:13 97.7 F 72 18 107/72 97 01/21/19 04:00 98.0 F 74 19 103/71 96 Weight Admit Weight 150 lb 14.4 oz Weight 150 lb 14.4 oz I&O: 01/20/19 01/21/19 01/22/19 06:59 06:59 06:59 Intake Total 2774 Balance 2774 Result Diagrams: 01/21/19 05:21 01/21/19 05:21 Additional Labs: Accuchecks 01/21/19 01/21/19 01/20/19 11:44 03:45 19:06 POC Glucose 105 244 H 222 H 01/20/19 01/20/19 17:09 14:04 POC Glucose 148 H 144 H Hospitalist ROS - Review of Systems ENT: denies: ear pain, ear discharge, nose pain, nose discharge, nose congestion , mouth pain, mouth swelling, throat pain, throat swelling, other Respiratory: denies: cough, dry, shortness of breath, hemoptysis, SOB with excertion, pleuritic pain, sputum, wheezing, other Cardiovascular: denies: chest pain, palpitations, orthopnea, paroxysmal noc. dyspnea, edema, light headedness, other Gastrointestinal: denies: nausea, vomiting, abdominal pain, diarrhea, constipation, melena, hematochezia, other Genitourinary: denies: dysuria, frequency, incontinence, hematuria, retention, other Musculoskeletal: denies: neck pain, shoulder pain, arm pain, back pain, hand pain, leg pain, foot pain, other Skin: denies: rash, lesions, lester, bruising, other - Medication Medications: Active Medications Generic Name Dose Route Start Last Admin Trade Name Freq PRN Reason Stop Dose Admin Hydrocodone Bitart/Acetaminophen 1 tab 01/20/19 08:36 01/20/19 21:59 Callahan 5/325 PO 1 tab Q4H PRN Administration Moderate Pain (4-6) Chlorhexidine Gluconate 15 ml 01/20/19 21:00 01/21/19 08:06 Chlorhexidine Gluconate SSP 15 ml BID YOLETTE Administration Enoxaparin Sodium 40 mg 01/20/19 09:00 01/21/19 08:07 Lovenox SC 40 mg 0900 YOLETTE Administration Famotidine 20 mg 01/20/19 09:00 01/21/19 08:06 Pepcid PO 20 mg BID YOLETTE Administration Clindamycin Phosphate/Dextrose 50 mls @ 100 mls/hr 01/20/19 14:00 01/21/19 13 :23 900 mg/ Device IVPB 50 mls Q8HR YOLETTE Administration Insulin Glargine 50 units/ 0.5 mls @ 0 mls/hr 01/20/19 21:00 01/20/19 22:01 Miscellaneous Medication SC Not Given HS [facility] Sodium Chloride 1,000 mls @ 75 mls/hr 01/21/19 09:15 01/21/19 09:52 1/2 Normal Saline IV Not Given .[id number] [facility] Insulin Human Lispro 0 units 01/20/19 08:36 01/21/19 05:33 Humalog SC 4 unit .MODERATE SLIDING SC PRN Administration Moderate Correctional Scale Insulin Human NPH 10 unit 01/20/19 21:00 01/21/19 08:07 Humulin N SC 10 unit BID [facility] Administration Metformin HCl 1,000 mg 01/21/19 09:00 01/21/19 08:06 Glucophage PO 1,000 mg DAILY YOLETTE Administration Morphine Sulfate 2 mg 01/20/19 09:07 01/21/19 09:48 Morphine SLOW IVP 2 mg Q4H PRN Administration Pain Saccharomyces Boulardii 250 mg 01/20/19 09:00 01/21/19 08:06 Florastor PO 250 mg DAILY [facility] Administration Sodium Chloride 10 ml 01/20/19 21:00 01/21/19 08:07 Flush - Normal Saline IVF Not Given Q12HR [facility] - Exam General Appearance: NAD, awake alert Eye: PERRL, anicteric sclera ENT: normocephalic atraumatic, no oropharyngeal lesions Neck: supple, symmetric, no JVD, no thyromegaly Heart: RRR, no murmur, no gallops, no rubs Respiratory: CTAB, no wheezes, no rales, no ronchi Gastrointestinal: soft, non-tender, non-distended, normal bowel sounds, no palpable masses, no hepatomegaly Extremities: no cyanosis, no clubbing Skin: normal turgor, no lesions Neurological: cranial nerve grossly intact, no focal deficits Musculoskeletal: normal tone, normal strength Psychiatric: normal affect, normal behavior Hosp A/P (1) Cellulitis, face Code(s): L03.211 - CELLULITIS OF FACE Status: Acute (2) Dental abscess Code(s): K04.7 - PERIAPICAL ABSCESS WITHOUT SINUS Status: Acute (3) Hypokalemia Code(s): E87.6 - HYPOKALEMIA Status: Acute (4) Hyperglycemia due to type 2 diabetes mellitus Code(s): E11.65 - TYPE 2 DIABETES MELLITUS WITH HYPERGLYCEMIA Status: Acute - Plan old records reviewed/req, continue antibiotics 01/21/19- replace potassium, continue clindamycin, DC IVF, follow culture, change IVF with potassium at 75 ml per hour, adjust insulin dose today, medication reviewed as above, symptomatic treatment
[2019-01-21] MEDS: Insulin Glargine 50 UNITS in Pre-Filled Syringe 1 EACH SC SCH (21:12)
[2019-01-22] MEDS: Sodium Chloride 0.45% 1,000 ML IV SCH ×2 (05:22→16:40)
[2019-01-22] MEDS: Clindamycin/D5W 900 MG in Premix Bag 1 BAG IVPB SCH ×3 (05:22→19:39)
[2019-01-22] MEDS: HumaLOG 300 UNITS/3 ML VIAL SC PRN ×3 (05:25→16:40)
[2019-01-22] MEDS: Famotidine 20 MG TAB PO SCH ×2 (08:14→19:40)
[2019-01-22] MEDS: Chlorhexidine Gluconate 15 ML UDCUP SSP SCH ×2 (08:14→19:40)
[2019-01-22] MEDS: metFORMIN 500 MG TAB PO SCH (08:14)
[2019-01-22] MEDS: Saccharomyces boulardii 250 MG CAP PO SCH (08:14)
[2019-01-22] MEDS: Enoxaparin Sodium 40 MG/0.4 ML SYRINGE SC SCH (08:14)
[2019-01-22] MEDS: Morphine 2 MG/ML SYRINGE SLOW IVP PRN ×3 (08:14→23:41)
[2019-01-22] MEDS: NPH, Human Insulin Isophane 300 UNIT/3 ML VIAL SC SCH ×2 (08:15→19:31)
--- NOTE | 2019-01-22 11:49 | PDOC.HOSPP ---
- Subjective Encounter Date: 01/22/19 Encounter Time: 09:45 Subjective: Patient seen and examined. No new complaints. No overnight events - Objective Vital Signs & Weight: Vital Signs (12 hours) Temp Pulse Resp BP Pulse Ox 01/22/19 07:47 98 F 80 16 128/76 97 01/22/19 04:00 98.2 F 76 20 122/79 97 Weight Admit Weight 150 lb 14.4 oz Weight 150 lb 14.4 oz I&O: 01/21/19 01/22/19 01/23/19 06:59 06:59 06:59 Intake Total 2774 4125 Balance 2774 4125 Result Diagrams: 01/21/19 05:21 01/21/19 05:21 Additional Labs: Accuchecks 01/22/19 01/22/19 01/21/19 11:07 04:09 19:03 POC Glucose 212 H 195 H 134 H 01/21/19 01/21/19 15:42 11:44 POC Glucose 255 H 105 Hospitalist ROS - Review of Systems Eyes: denies: pain, vision change, conjunctivae inflammation, eyelid inflammation, redness, other ENT: reports: mouth pain. denies: ear pain, ear discharge, nose pain, nose discharge, nose congestion, mouth swelling, throat pain, throat swelling, other Respiratory: denies: cough, dry, shortness of breath, hemoptysis, SOB with excertion, pleuritic pain, sputum, wheezing, other Cardiovascular: denies: chest pain, palpitations, orthopnea, paroxysmal noc. dyspnea, edema, light headedness, other Gastrointestinal: denies: nausea, vomiting, abdominal pain, diarrhea, constipation, melena, hematochezia, other Genitourinary: denies: dysuria, frequency, incontinence, hematuria, retention, other Musculoskeletal: denies: neck pain, shoulder pain, arm pain, back pain, hand pain, leg pain, foot pain, other Skin: denies: rash, lesions, lester, bruising, other - Medication Medications: Active Medications Generic Name Dose Route Start Last Admin Trade Name Freq PRN Reason Stop Dose Admin Hydrocodone Bitart/Acetaminophen 1 tab 01/20/19 08:36 01/20/19 21:59 Banks 5/325 PO 1 tab Q4H PRN Administration Moderate Pain (4-6) Chlorhexidine Gluconate 15 ml 01/20/19 21:00 01/22/19 08:14 Chlorhexidine Gluconate SSP 15 ml BID YOLETTE Administration Enoxaparin Sodium 40 mg 01/20/19 09:00 01/22/19 08:14 Lovenox SC 40 mg 0900 YOLETTE Administration Famotidine 20 mg 01/20/19 09:00 01/22/19 08:14 Pepcid PO 20 mg BID YOLETTE Administration Clindamycin Phosphate/Dextrose 50 mls @ 100 mls/hr 01/20/19 14:00 01/22/19 05 :22 900 mg/ Device IVPB 50 mls Q8HR YOLETTE Administration Insulin Glargine 50 units/ 0.5 mls @ 0 mls/hr 01/20/19 21:00 01/21/19 21:12 Miscellaneous Medication SC 0.5 mls HS YOLETTE Administration Sodium Chloride 1,000 mls @ 75 mls/hr 01/21/19 09:15 01/22/19 05:22 1/2 Normal Saline IV 1,000 mls .[id number] YOLETTE Administration Insulin Human Lispro 0 units 01/20/19 08:36 01/22/19 05:25 Humalog SC 2 unit .MODERATE SLIDING SC PRN Administration Moderate Correctional Scale Insulin Human NPH 10 unit 01/20/19 21:00 01/22/19 08:15 Humulin N SC 10 unit BID YOLETTE Administration Metformin HCl 1,000 mg 01/21/19 09:00 01/22/19 08:14 Glucophage PO 1,000 mg DAILY YOLETTE Administration Morphine Sulfate 2 mg 01/20/19 09:07 01/22/19 08:14 Morphine SLOW IVP 2 mg Q4H PRN Administration Pain Saccharomyces Boulardii 250 mg 01/20/19 09:00 01/22/19 08:14 Florastor PO 250 mg DAILY YOLETTE Administration Sodium Chloride 10 ml 01/20/19 21:00 01/22/19 08:16 Flush - Normal Saline IVF Not Given Q12HR [facility] - Exam General Appearance: NAD, awake alert Eye: PERRL, anicteric sclera ENT: normocephalic atraumatic, no oropharyngeal lesions Neck: supple, symmetric, no JVD Heart: RRR, no murmur, no gallops Respiratory: CTAB, no wheezes, no rales, no ronchi Gastrointestinal: soft, non-tender, non-distended, normal bowel sounds Extremities: no cyanosis, no clubbing, no edema Skin: normal turgor, no lesions Neurological: cranial nerve grossly intact, no focal deficits Musculoskeletal: normal tone, normal strength Psychiatric: normal affect, normal behavior Hosp A/P (1) Cellulitis, face Code(s): L03.211 - CELLULITIS OF FACE Status: Acute (2) Dental abscess Code(s): K04.7 - PERIAPICAL ABSCESS WITHOUT SINUS Status: Acute (3) Hypokalemia Code(s): E87.6 - HYPOKALEMIA Status: Acute (4) Hyperglycemia due to type 2 diabetes mellitus Code(s): E11.65 - TYPE 2 DIABETES MELLITUS WITH HYPERGLYCEMIA Status: Acute - Plan old records reviewed/req, continue antibiotics 01/21/19- replace potassium, continue clindamycin, DC IVF, follow culture, change IVF with potassium at 75 ml per hour, adjust insulin dose today, medication reviewed as above, symptomatic treatment 01/22/19- continue clindamycin, oral surgeon following, blood sugar are better controlled, oral care, will consider discharge soon
[2019-01-22] MEDS: Insulin Glargine 50 UNITS in Pre-Filled Syringe 1 EACH SC SCH (19:31)
[2019-01-23] MEDS: Clindamycin/D5W 900 MG in Premix Bag 1 BAG IVPB SCH ×2 (06:21→13:23)
[2019-01-23] MEDS: Morphine 2 MG/ML SYRINGE SLOW IVP PRN ×2 (06:24→10:53)
[2019-01-23] MEDS: Chlorhexidine Gluconate 15 ML UDCUP SSP SCH (08:47)
[2019-01-23] MEDS: Enoxaparin Sodium 40 MG/0.4 ML SYRINGE SC SCH (08:47)
[2019-01-23] MEDS: Saccharomyces boulardii 250 MG CAP PO SCH (08:48)
[2019-01-23] MEDS: metFORMIN 500 MG TAB PO SCH (08:48)
[2019-01-23] MEDS: Famotidine 20 MG TAB PO SCH (08:48)
[2019-01-23] MEDS: NPH, Human Insulin Isophane 300 UNIT/3 ML VIAL SC SCH (08:52)
[2019-01-23] MEDS: Sodium Chloride 0.45% 1,000 ML IV SCH ×2 (10:04→10:58)
[2019-01-23 11:33] VITALS: BP 103/51; TEMP 98.1
--- NOTE | 2019-01-23 16:55 | DIS ---
DATE OF ADMISSION: 01/20/2019 DATE OF DISCHARGE: 01/23/2019 DISCHARGE DISPOSITION: Home. PRIMARY DISCHARGE DIAGNOSIS: Right facial cellulitis with dental abscess. SECONDARY DISCHARGE DIAGNOSIS: Diabetes mellitus type 2. PROCEDURES DONE DURING HOSPITALIZATION: The patient has had facial bone CT done , which showed findings suggestive of extensive abscess greatest in the right maxillary second molar with remodeling of the floor of the right maxillary sinus. He has had incision and drainage of the abscess done by Dr. David Herring. Histopathology of the right maxillary sinus biopsy shows no malignancy, but there is abscess and granulation tissue with acute on chronic inflammatory changes. Blood cultures x2, no growth. Group A strep throat culture was negative. Maxillary abscess culture is growing possible anaerobes. Isolation is in progress. There is moderate gram-negative rods, moderate gram-positive cocci in pairs, chains and clusters. DISCHARGE MEDICATIONS: 1. Clindamycin 300 mg p.o. q.6 hourly for another seven days. 2. Motrin 400 mg p.o. three times daily p.r.n. for pain. 3. Ultram 50 mg 4 times daily p.r.n. for pain. 4. Metformin 1000 mg daily. 5. Levemir 50 units subcu at bedtime. 6. Humulin R sliding scale. 7. Norvasc 10 mg daily. ALLERGIES: NO KNOWN DRUG ALLERGIES. INPATIENT CONSULT: Dr. David Herring for Orofacial and Maxillary Surgery. DISCHARGE PLAN: The patient to follow up with Dr. David Herring as advised and primary care physician in 1 week. BRIEF COURSE DURING HOSPITALIZATION: The patient initially came to ER with complaints of right-sided facial swelling and tooth pain. Initial CAT scan done revealed likely periodontal abscess with involvement of right maxillary sinus and facial cellulitis. He has had consultation with Dr. David Herring. He has had bedside debridement done by Dr. Hernandez. His right facial swelling and right facial edema and erythema are receding. His pain is coming down as well. He is able to tolerate oral solid diet prior to discharge. He is wanting to go home today and has been cleared by Dr. David Herring for discharge. Please note, I have seen and examined the patient on the day of discharge. Job ID: [id number] [facility]
--- NOTE | 2019-01-24 02:34 | EKG ---
Test Reason : Blood Pressure : / mmHG Vent. Rate : 101 BPM Atrial Rate : 101 BPM P-R Int : 162 ms QRS Dur : 100 ms QT Int : 346 ms P-R-T Axes : 070 086 033 degrees QTc Int : 448 ms Sinus tachycardia Nonspecific ST and T wave abnormality Abnormal ECG Confirmed by SANDRA NEWBERRY, ADELIA Boone ([id number]), digital editor RUSLAN DEVI ([id number]) on 01/24/2019 2:34:03 AM Referred By: Confirmed By:ADELIA FLORES MD
--- NOTE | 2019-01-25 15:17 | OP ---
DATE OF PROCEDURE: 01/20/2019 PREOPERATIVE DIAGNOSES: 1. Generalized dental decay. 2. Right axillary abscess. 3. Large right maxillary sinus lesion measuring approximately 2.7 cm x 2.1 cm x 2.9 cm. 4. Large periapical pathology in tooth #7, 9 through 11, 14, 15, and 30 to 31 area. POSTOPERATIVE DIAGNOSES: Generalized dental decay. Right maxillary abscess. Large right maxillary sinus lesion measuring approximately 2.7 cm x 2.1 cm x 2.97 cm. Large periapical pathology in teeth #7, 9 through 11, 14, 15 and 30 to 31 area. PROCEDURES PERFORMED: 1. Incision and drainage of right axillary abscess. 2. Removal of right maxillary lesion. 3. Removal of teeth #1 through 5 and #7. INDICATION: This is a 38-year-old male with uncontrolled diabetes who presented to the hospital with a large right maxillary midface abscess secondary to infected teeth. The patient was evaluated and it was determined that he needed to be taken to the operating room for treatment of this abscess in addition to removal of the pathology associated with this abscess and the teeth causing both the pathology and the abscess. DESCRIPTION OF PROCEDURE: The patient was identified in the preoperative holding area. All questions were answered. Patient was subsequently taken to the operating room and transferred to the operating room table in supine position. The patient was then intubated via nasal route after induction of general anesthetic by the anesthesia team. Surgical time-out was performed. The face and neck were prepped and draped in a sterile manner. The oral cavity was irrigated and suctioned free of debris and a throat pack was placed. The mouth was then prepped with Peridex oral rinse and a tooth brush. Local anesthetic was then delivered throughout the right maxillary region. A crestal incision was made from approximately the tooth #1 to tooth #8 region and a full-thickness mucoperiosteal flap was raised facially. Significant purulence was obtained from the right maxillary vestibular region upon incision and flap creation in the right maxilla. Teeth #1 through 5 were then elevated and removed with a combination of rongeurs and forceps. Tooth #7 was then elevated with a rongeur as well. After removal of the teeth and drainage of the abscess, attention was turned to the large pathology extending into the right maxillary sinus. Curettes were used to begin this large lesion from the maxilla and sinus and this process continued until the large cystic structure was gradually freed from its underlying bony housing. This lesion and cyst had eroded through the bone out to the buccal and was attached to the overlying buccal soft tissues. A pickup and combination of scissors and a blade were used to gently separate this cyst from the adjacent normal tissues. After separation from the cyst from the overlying tissues, the cyst was fully removed and it was sent in formalin for histologic examination. It also should be noted purulence that was drained from the right maxillary abscess was also sent on culture swabs for cultures and sensitivities. After excision of the large right maxillary lesion, attention was turned back to the sockets and the sockets were curetted clean at this time and debrided appropriately. The right maxillary bone was then smoothed where needed using a combination of hand instruments, burs and a handpiece. After this alveoloplasty, the wounds were all irrigated copiously, bacitracin infused normal saline and the wounds were subsequently closed with a combination of interrupted and running 4-0 chromic gut sutures. After closure, the oral cavity was irrigated and suctioned free of debris and the throat pack was removed. A gauze pressure pack with an extraoral tear was placed over the right maxillary region to catch any drainage and the patient was turned over to the Anesthesia Service for emergence and extubation, which ensued without complication. INTRAVENOUS FLUIDS: Please see anesthetic record. ESTIMATED BLOOD LOSS: 25 mL. COMPLICATIONS: None. DRAINS: None. IMPLANTS: None. SPECIMENS: 1. Right maxillary cystic structure for permanent histology. 2. Purulence from the right maxilla for culture and sensitivity. FINDINGS: Large cystic structure, most likely a large periapical cyst due to long-standing underlying dental infection in the area with associated [id number] abscess of the right midface and maxillary region. Significant dental decay throughout the dentition. Periapical granuloma associated with tooth #7, which was curetted clean. DISPOSITION: The patient tolerated the procedure well. He was extubated and transferred to recovery room in good condition. Job ID: [id number]
--- NOTE | 2019-02-09 04:09 | CON ---
DATE OF CONSULTATION: 01/20/2019 CONSULTING PHYSICIAN: Dr. Azul with Hospitalist Service. HISTORY OF PRESENT ILLNESS: This is a 38-year-old male, who was evaluated in the [place] [facility] due to worsening right facial edema and pain. The patient has a history of multiple dental abscesses over time and currently has a progressive and worsening infection of the right mid face region. The patient was also noted in the emergency room to have uncontrolled blood sugars in the 500 range secondary to noncompliance with diabetes treatment at home. I was consulted for evaluation and management of his right maxillary abscess upon admission. PAST MEDICAL HISTORY: Type 2 diabetes, hypertension, and history of pancreatitis. PAST SURGICAL HISTORY: Noncontributory. HOME MEDICATIONS: 1. Metformin. 2. Humulin. 3. Amlodipine. 4. Clindamycin. ALLERGIES: NO KNOWN DRUG ALLERGIES. SOCIAL HISTORY: Denies alcohol. Positive for cigarette smoking. Denies illicit drugs. FAMILY HISTORY: Diabetes. REVIEW OF SYSTEMS: The patient reports pain and discomfort along with swelling in the right mid face region. No reports of visual changes or disturbances. Review of systems is negative otherwise. PHYSICAL EXAMINATION: VITAL SIGNS: Blood pressure 111/74, pulse 72, temperature 97.6, and respiratory rate 18. GENERAL: Alert and oriented x3, no apparent distress. HEAD AND NECK: The patient has moderate edema over the right midface region extending up to the right infraorbital region, but not noticeably affecting the periorbital-intraorbital region. Visual acuity is grossly intact bilaterally, and extraocular movements are intact bilaterally. Nasal exam is without notable finding. Ear exam is without notable finding. Intraoral exam shows large vestibular fluctuance and swelling in the right maxillary region. The patient has advanced generalized dental decay affecting all the remaining dentition with likely the entire dentition nonsalvageable secondary to decay and infection. Other than the right maxillary region, no signs currently of active infection clinically in the soft tissues of the left maxilla or bilateral mandible. Floor of mouth is soft and normal. Oropharynx is within normal limits. Neck exam is normal. Trachea midline and no areas of swelling or induration. LUNGS: The patient is breathing without difficulty and handling secretions without problems. LABORATORY DATA: The patient has WBC of 10.3 yesterday evening, hemoglobin of 15, and platelets of 245. Admission sugar was 546, and these have been trending slightly down since then. Other notable findings on chemistry panel were sodium 135 and chloride of 96. IMAGING DATA: CT scan of the face shows a large right maxillary lesion extending into the right maxillary sinus. As noted, clinically, there is gross decay affecting the entire dentition throughout the mouth with multiple areas of periapical pathology noted on the CT scan, most likely signs of periapical abscesses and inflammatory tissue secondary to infected teeth. The patient has significant soft tissue edema and cellulitis over the right mid face region with fluid collection noted in this region, likely related to the right maxillary lesion, which likely represents odontogenic infection and inflammation of a chronic nature. ASSESSMENT: 1. Nonrestorable and hopeless dentition secondary to advanced decay. 2. Right maxillary abscess and large right maxillary pathology extending into the right maxillary sinus likely secondary to infected teeth; however, this lesion could also be consistent with an odontogenic cyst or an odontogenic tumor. The patient also notably has significant periapical disease and pathology scattered throughout the remainder of the maxilla and mandible associated with the other teeth with advanced disease and decay. PLAN: 1. The patient's condition was discussed in detail with him to include not only the most acute issue of the right maxillary region but also the state of the remaining dentition to include the periapical pathology noted throughout the maxilla and mandible in other places. I informed the patient that he really needed to have all of these teeth removed and these other areas of periapical pathology addressed at that time; however, the patient refused this intervention and only wants to address the right maxilla, where the most acute issue is occurring currently. 2. Based on the patient's wishes, the current plan for intervention at this time will include incision and drainage of the right maxillary abscess, removal of the right maxillary pathologic lesion, and removal of teeth one through five and seven in the operating room under general anesthetic. 3. The patient should be kept n.p.o. He will be continued on antibiotics and Peridex oral rinses and the plan will be to take him to the operating room later today. Job ID: [id number] [facility]
--- NOTE | 2019-02-11 06:34 | PQF ---
[employer] Fritz JAIDA GHOSH MD [id number] CLINICAL DOCUMENTATION CLARIFICATION FORM: POST DISCHARGE Addendum to original discharge summary date: ____ Late entry note date: __ DATE: ATTN: JAIDA GHOSH MD Please exercise your independent, professional judgment in responding to the clarification form. Clinical indicators are provided on the bottom of this form for your review Please check appropriate box(s) to clarify if the following diagnosis has been ruled in or ruled out: SEPSIS (CDI/Coding list diagnosis here) [ ] Ruled in diagnosis [ ] Continue to treat [ ] Resolved [ x ] Ruled out diagnosis [ ] Cannot rule out diagnosis [ ] Other diagnosis [ ] Unable to determine In addition, please specify: Present on Admission (POA): [ ] Yes [ ] No [ ] Unable to determine For continuity of documentation, please document condition throughout progress notes and discharge summary. Thank You. CLINICAL INDICATORS - SIGNS / SYMPTOMS / LABS Sepsis - Documented in H&P on 01/20 by Jorge Alberto Mcpherson BP 103/51 on 01/23 - Documented in Vital signs Blood culture no growth - Documented in DS on 01/23 by JAIDA GHOSH MD Maxillary abscess culture growing possible anaerobes - Documented in DS on by JAIDA GHOSH MD RISK FACTORS Dental abscess and facial cellulitis- Documented in H&P on 01/20 by Jorge Alberto Mcpherson DM with hyperglycemia - Documented in Hospital PNs on 01/21 by Stephanie Azul TREATMENTS Continue clindamycin - Documented in Hospital PNs on 01/21 by Stephanie Azul He will continued on antibiotics and peridex oral rinse - Documented in Consultation note on 01/30 by Jean-Paul Sánchez MD [employer] (This form is maintained as a part of the permanent medical record) 2014 [employer]. All Rights Reserved [email or web address] [not provided] MTDD
--- NOTE | 2019-02-15 04:09 | PQF ---
[employer] JAIDA GHOSH MD [id number] CLINICAL DOCUMENTATION CLARIFICATION FORM: POST DISCHARGE Addendum to original discharge summary date: ____ Late entry note date: __ DATE: 02/15/2019 ATTN:JAIDA GHOSH MD Please exercise your independent, professional judgment in responding to the clarification form. Clinical indicators are provided on the bottom of this form for your review Please check appropriate box(s): [ ] Fascial Cellulities due to Diabetes [ x ] Fascial Cellulities not due to Diabetes [ ] Other diagnosis [ ] Unable to determine In addition, please specify: Present on Admission (POA): [ x ] Yes [ ] No [ ] Unable to determine CLINICAL INDICATORS - SIGNS / SYMPTOMS / LABS Current medication Metformanin - Documented in H&P on 01/20 by Jorge Alberto Mcpherson Hx of DM type 2 - Documented in H&P on 01/20 by Jorge Alberto Mcpherson Hyperglycemia - Documented in H&P on 01/20 by Jorge Alberto Mcpherson Glucose level 546 on 01/19 - Documented in Laboratory Results RISK FACTORS Dental Abscess and fascial cellulities - Documented in H&P on 01/20 by Jorge Alberto Mcpherson Maxillary abscess culture growing possible anaerobes - Documented in DS on by JAIDA GHOSH MD TREATMENTS: Continue Clindamycin - Documented Hospital PNs on 01/21 by Stephanie Azul We will control his DM with insulin as per sliding scale as well as will continue with insulin 70/30, 10 units subcu and adjust insulin accordingly - Documented in H&P on 01/20 by Jorge Alberto Mcpherson (This form is maintained as a part of the permanent medical record) 2014 [employer]. All Rights Reserved [email or web address] [not provided] MTDD
== END 2019-01-23 16:38 | disposition home or self-care (01) | DRG 135 ==
LOC: ERS 20:27 → T4-B 01-20 02:52 → OBSVTOIN 01-20 02:52
PROVIDERS: ADMIT Hospitalist; ATTEND Hospitalist
PROC: 0X940ZZ Drainage of Right Axilla, Open Approach (ICD-10-PCS; principal; 2019-01-20)
PROC: 09BQ0ZZ Excision of Right Maxillary Sinus, Open Approach (ICD-10-PCS; 2019-01-20)
PROC: 0CTW0Z1 Resection of Upper Tooth, Multiple, Open Approach (ICD-10-PCS; 2019-01-20)
DX: K05.219 Aggressive periodontitis, localized, unspecified severity (principal); L03.211 Cellulitis of face; I10 Essential (primary) hypertension; E11.65 Type 2 diabetes mellitus with hyperglycemia; F17.210 Nicotine dependence, cigarettes, uncomplicated; E87.6 Hypokalemia; Z79.899 Other long term (current) drug therapy
CPT/HCPCS: 36415; 36416; 70487; 80048; 80053; 81001; 82010; 83036; 84145; 85025; 86140; 87040; 87070; 87081; 87205; 87430; 88305; 93005; 96361; 96365; 96375; J1650; J1815; J1885; J2250; J2270; J2405; J2704; J3010; J3480; J3490; Q9966

== ENCOUNTER 2023-10-03 09:02 | Emergency (ER) | payer OTHER, SELFPAY ==
[2023-10-03 09:28] LABS: #Basophils 0.04 10x3/uL (0.0-0.2); %Basophils 0.6 % (0.0-1.0); %Eosinophils 10.7 % (0.0-10.0); %Lymphocytes 18.2 % (21.0-51.0); %Monocytes 9.7 % (0.0-10.0); %Neutrophils 60.6 % (42.0-75.0); Hematocrit 40.3 % (42.0-52.0); Hemoglobin 13.2 g/dL (14.0-18.0); Mean Corpuscular HGB CONC 32.8 g/dL (32.0-36.0); Mean Corpuscular Hemoglobin 28.9 pg (27.0-31.0); Mean Corpuscular Volume 88.4 fL (78.0-98.0); Mean Platelet Volume 10.3 fL (7.4-10.4); Platelet Count 207 10x3/uL (130-400); RBC Distribution Width 12.2 % (11.5-14.5); Red Blood Cell (RBC) Count 4.56 mill/uL (4.70-6.10)
[2023-10-03 09:30] LABS: Actual Bicarbonate (HCO3v) 25.7 mEq/L (22-28); Base Excess -0.7 mEq/L (-2.0 to +3.0); Calcium, Ionized (venous) 1.15 mmol/L (1.16-1.32); Chloride (VBG) 96 mmol/L (98-106); Hematocrit-VBG 40 % (42.0-52.0); Hemoglobin (Hb) 13.7 g/dL (13.2-17.3); Potassium (VBG) 4.48 mmol/L (3.70-5.30); Sodium 135 mmol/L (133-146); pH (venous) 7.332 (7.32-7.43)
[2023-10-03 09:53] LABS: ALT (SGPT) 34 U/L (8-55); AST (SGOT) 22 U/L (5-34); Albumin 3.4 g/dL (3.5-5.0); Alkaline Phosphatase 132 U/L (40-110); Anion Gap 11 mmol/L (10-20); BUN (Urea Nitrogen) 13 mg/dL (8.9-20.6); Bilirubin, Total 0.9 mg/dL (0.2-1.2); Calc. Creatinine Clearance 0 mL/min (70-130); Calcium 8.6 mg/dL (7.8-10.44); Carbon Dioxide 25 mmol/L (22-29); Chloride 99 mmol/L (98-107); Estimated GFR 77; Glucose 497 mg/dL (70-105); Lipase 7 U/L (8-78); Magnesium 1.9 mg/dL (1.6-2.6); Potassium 4.3 mmol/L (3.5-5.1); Protein, Total 6.4 g/dL (6.0-8.3); Sodium 131 mmol/L (136-145)
[2023-10-03 11:06] LABS: Bacteria/HPF None Seen HPF (None Seen); Bilirubin Negative (Negative); Blood, Urine Negative (Negative); CAUTI Indications for Culture Dysuria,urgency,freq; Clarity Clear (Clear); Glucose, Urine (Dipstick) Greater than 1000 mg/dL (Negative); Ketone, Urine Negative (Negative); Leukocyte Negative Leu/uL (Negative); Nitrite Negative (Negative); Protein, Urine (Dipstick) Negative (Neg-Trace); RBC/HPF None Seen HPF (0-3); Specific Gravity, Urine 1.037 (1.002-1.036); Squamous Epithelial None Seen HPF (0-3); Urobilinogen Normal mg/dL (Less than 2); WBC/HPF None Seen HPF (0-3); pH, Urine 5.5 (5.0-9.0)
[2023-10-03 11:08] LABS: Urine Culture Reflex No No
== END 2023-10-03 10:32 | disposition home or self-care (01) ==
LOC: ERS 09:02
DX: E11.65 Type 2 diabetes mellitus with hyperglycemia (principal); F17.210 Nicotine dependence, cigarettes, uncomplicated; Z79.4 Long term (current) use of insulin
CPT/HCPCS: 36415; 36416; 71045; 80053; 81001; 82010; 82805; 83690; 83735; 85025; 93005; 94760

== ENCOUNTER 2023-10-04 23:38 | Emergency (ER) | payer OTHER, SELFPAY ==
[2023-10-05] MEDS ORDERED: Ondansetron PF 4 MG/2 ML Vial ONE (01:06)
[2023-10-05] MEDS ORDERED: Aspirin Chewable 81 MG TAB ONE (01:07)
[2023-10-05 01:36] LABS: #Basophils 0.05 10x3/uL (0.0-0.2); %Basophils 0.8 % (0.0-1.0); %Eosinophils 7.4 % (0.0-10.0); %Monocytes 8.3 % (0.0-10.0); %Neutrophils 58.3 % (42.0-75.0); Hematocrit 42.1 % (42.0-52.0); Mean Corpuscular HGB CONC 33.3 g/dL (32.0-36.0); Mean Corpuscular Hemoglobin 29.4 pg (27.0-31.0); Mean Corpuscular Volume 88.4 fL (78.0-98.0); Mean Platelet Volume 10.9 fL (7.4-10.4); Platelet Count 218 10x3/uL (130-400); RBC Distribution Width 11.9 % (11.5-14.5); Red Blood Cell (RBC) Count 4.76 mill/uL (4.70-6.10)
[2023-10-05 01:56] LABS: ALT (SGPT) 41 U/L (8-55); AST (SGOT) 30 U/L (5-34); Albumin 3.8 g/dL (3.5-5.0); Alkaline Phosphatase 98 U/L (40-110); Anion Gap 15 mmol/L (10-20); BUN (Urea Nitrogen) 14 mg/dL (8.9-20.6); Bilirubin, Total 0.9 mg/dL (0.2-1.2); Calc. Creatinine Clearance 0 mL/min (70-130); Calcium 9.4 mg/dL (7.8-10.44); Carbon Dioxide 25 mmol/L (22-29); Chloride 104 mmol/L (98-107); Estimated GFR 96; Globulin 3.7 g/dL (2.4-3.5); Glucose 170 mg/dL (70-105); Lipase 4 U/L (8-78); Magnesium 1.9 mg/dL (1.6-2.6); Potassium 4.6 mmol/L (3.5-5.1); Protein, Total 7.5 g/dL (6.0-8.3); Sodium 139 mmol/L (136-145)
[2023-10-05 01:57] LABS: Troponin I Less than 0.010 ng/mL (< 0.028)
[2023-10-05 02:49] LABS: Bacteria/HPF None Seen HPF (None Seen); Bilirubin Negative (Negative); Blood, Urine Negative (Negative); CAUTI Indications for Culture Fever or rigors; Clarity Clear (Clear); Glucose, Urine (Dipstick) Greater than 1000 mg/dL (Negative); Ketone, Urine Negative (Negative); Leukocyte Negative Leu/uL (Negative); Nitrite Negative (Negative); Protein, Urine (Dipstick) 30 mg/dL (Neg-Trace); RBC/HPF None Seen HPF (0-3); Specific Gravity, Urine 1.015 (1.002-1.036); Squamous Epithelial None Seen HPF (0-3); Urobilinogen Normal mg/dL (Less than 2); WBC/HPF 0-3 HPF (0-3)
[2023-10-05 02:53] LABS: Urine Culture Reflex No No
[2023-10-05] MEDS ORDERED: Amlodipine 5 MG TAB ONE (03:19)
== END 2023-10-05 03:30 ==
LOC: EEVIPCON 23:38 → ERS 23:38
DX: R07.89 Other chest pain (principal); R53.1 Weakness; R42 Dizziness and giddiness; R29.700 NIHSS score 0; E11.9 Type 2 diabetes mellitus without complications; K85.90 Acute pancreatitis without necrosis or infection, unspecified; F17.210 Nicotine dependence, cigarettes, uncomplicated; W19.XXXA Unspecified fall, initial encounter; Z91.119 Patient's noncompliance with dietary regimen due to unspecified reason
CPT/HCPCS: 36415; 36416; 70450; 71045; 80053; 81001; 83690; 83735; 84484; 85025; 93005; 96374; J2405

== ENCOUNTER 2023-10-09 05:38 | Emergency (ER) | payer OTHER, SELFPAY | END 2023-10-09 07:58 | LOC: ERS 05:38 | DX: I10 Essential (primary) hypertension (principal); E11.65 Type 2 diabetes mellitus with hyperglycemia; F17.210 Nicotine dependence, cigarettes, uncomplicated | CPT/HCPCS: 36416; 80053; 84484; 85025; 93005 ==